=== PATIENT | female | born 1960 | race Two or more races ===

== ENCOUNTER 2019-03-14 19:19 | Emergency (ER) | payer OTHER ==
[~2019-03-14] VITALS: Ht 157.5 cm; Wt 65.8 kg
--- NOTE | 2019-03-14 19:25 | NUR ---
[place] C/O HIP PAIN X1 WEEK WHILE PLAYING WITH GRANDCHILDREN. DENIES HEAD INJURY, ABLE TO AMBULATE WIH STEADY GAIT. SKIN INTACT. NO ACUTE DISTRESS NOTED AT THIS TIME.
--- NOTE | 2019-03-14 19:40 | NUR ---
RADIOLOGY AT BEDSIDE FOR XRAY
[2019-03-14] MEDS ORDERED: TRAMADOL HCL 50 MG TABLET ONE (19:42)
[2019-03-14] MEDS ORDERED: TRAMADOL HCL 50 MG TABLET PO ONE (20:00)
--- NOTE | 2019-03-14 20:34 | NUR ---
Patient discharged to home in stable condition. Written and verbal after care instructions given. Patient verbalizes understanding of instruction. IV removed. Catheter intact and site benign. Pressure and 4x4 applied to site. No bleeding noted. Pt ambulatory with a steady gait
[2019-03-14 20:35] VITALS: BP 137/74
== END 2019-03-14 20:36 | disposition home or self-care (01) ==
LOC: ER 19:21
DX: S70.01XA Contusion of right hip, initial encounter (principal); S70.11XA Contusion of right thigh, initial encounter; I10 Essential (primary) hypertension; K21.9 Gastro-esophageal reflux disease without esophagitis; Z90.49 Acquired absence of other specified parts of digestive tract; W19.XXXA Unspecified fall, initial encounter; Y93.89 Activity, other specified; Y92.89 Other specified places as the place of occurrence of the external cause; Y99.8 Other external cause status
CPT/HCPCS: 73502

== ENCOUNTER 2019-06-12 19:33 | Emergency (ER) | payer OTHER | END 2019-06-12 19:56 | disposition home or self-care (01) | DX: M54.5 Low back pain (principal); I10 Essential (primary) hypertension; K21.9 Gastro-esophageal reflux disease without esophagitis; Z90.49 Acquired absence of other specified parts of digestive tract ==

== ENCOUNTER 2019-06-29 18:31 | Emergency (ER) | payer OTHER ==
[~2019-06-29] VITALS: Ht 157.5 cm; Wt 67.6 kg
[2019-06-29 18:41] VITALS: BP 161/98
[2019-06-29] MEDS ORDERED: ACETAMINOPHEN W/ CODEINE#3 1 EA TABLET ONE (19:29)
[2019-06-29] MEDS ORDERED: ACETAMINOPHEN W/ CODEINE#3 1 EA TABLET PO ONE (19:30)
== END 2019-06-29 19:32 | disposition home or self-care (01) ==
LOC: ER 18:35
DX: K08.89 Other specified disorders of teeth and supporting structures (principal); I10 Essential (primary) hypertension; K21.9 Gastro-esophageal reflux disease without esophagitis; Z90.49 Acquired absence of other specified parts of digestive tract

== ENCOUNTER 2019-07-30 19:04 | Emergency (ER) | payer OTHER ==
[~2019-07-30] VITALS: Ht 157.5 cm; Wt 68.0 kg
[2019-07-30 19:27] VITALS: BP 155/109
--- NOTE | 2019-07-30 21:35 | NUR ---
PT NAME CALLED IN WAITING ROOM, NO ANSWER.
[2019-07-30] MEDS ORDERED: IBUPROFEN 600 MG TABLET PO ONE (22:45)
[2019-07-30] MEDS ORDERED: HYDROCODONE/APAP 5/325MG 1 EACH TABLET ONE (22:45)
[2019-07-30] MEDS: HYDROCODONE/APAP 5/325MG 1 EACH TABLET PO ONE (22:50)
[2019-07-30] MEDS: IBUPROFEN 600 MG TABLET PO ONE (22:50)
== END 2019-07-30 23:20 | disposition left against medical advice (07) ==
LOC: ER 19:06
DX: K08.89 Other specified disorders of teeth and supporting structures (principal); F11.10 Opioid abuse, uncomplicated; F19.10 Other psychoactive substance abuse, uncomplicated; F17.200 Nicotine dependence, unspecified, uncomplicated; I10 Essential (primary) hypertension; K21.9 Gastro-esophageal reflux disease without esophagitis; Z90.49 Acquired absence of other specified parts of digestive tract